=== PATIENT | male | born 1985 | race Two or more races ===

== ENCOUNTER 2017-08-24 14:19 | Inpatient (IN) | payer MEDICAID ==
[~2017-08-24] VITALS: Ht 175.3 cm; Wt 86.2 kg
[2017-08-24 14:56] VITALS: BP 147/101
--- NOTE | 2017-08-24 16:10 | Diagnostic Imaging Report ---
Indication: Pain Knee pain/trauma 3 views of the right knee were obtained. Findings: No acute fracture, malalignment, or joint effusion are identified. Joint space is relatively well-maintained. Impression: Negative for acute findings.
[2017-08-24 17:03] LABS: ALANINE AMINOTRANSFERASE 16 U/L (12-78); ALBUMIN 2.4 G/DL (3.4-5.0); ALBUMIN/GLOBULIN RATIO 0.9 (1.0-2.7); ALKALINE PHOSPHATASE 61 U/L (46-116); ANION GAP 6 mmol/L (5-15); ASPARTATE AMINO TRANSFERASE 13 U/L (15-37); BILIRUBIN,TOTAL 0.2 MG/DL (0.2-1.0); BLOOD UREA NITROGEN 10 mg/dL (7-18); CALCIUM 6.2 MG/DL (8.5-10.1); CARBON DIOXIDE 20 MMOL/L (21-32); CHLORIDE 114 MMOL/L (98-107); CREATININE 0.5 MG/DL (0.55-1.30); SODIUM 141 MMOL/L (136-145)
--- NOTE | 2017-08-24 17:06 | Emergency Room Report ---
History of Present Illness General Chief Complaint: Laceration Source: Patient Present Illness HPI 32-year-old male presents to the emergency department complaining of 10 out of 10 in severity pain to the right knee and right calf with associated swelling. Patient reports that he sustained laceration from coral reef 5 days ago in [place]. Patient states he was treated with antibiotics, had sutures placed and was supposed to follow-up. Patient states that he just returned home and he noticed that he had significant increase in swelling to the affected extremity. He denies new trauma or fall he denies significant increase in temperature palpation. Denies bleeding, discharge or opening of the sutured laceration. Denies numbness tingling or loss of sensation or gross motor movements of the extremity, Denies CP, Palpitations,Shortness of breath or dyspnea. Denies weakness or a sudden severe headache. Allergies: Coded Allergies: No Known Allergies (Unverified , 08/24/17) Patient History Past Medical History: see triage record Past Surgical History: none Pertinent Family History: none Reviewed Nursing Documentation: PMH: Agreed; PSxH: Agreed Nursing Documentation-PMH Past Medical History: No Stated History Review of Systems All Other Systems: negative except mentioned in HPI Physical Exam Vital Signs Date Time Temp Pulse Resp B/P (MAP) Pulse Ox O2 Delivery O2 Flow Rate FiO2 08/24/17 14:23 97.5 82 16 147/101 97 Room Air 97.5 Medical Decision Making PA Attestation Dr Alberts is my supervising Physician whom patient management has been discussed with. Diagnostic Impression: Primary Impression: DVT (deep venous thrombosis) Qualified Codes: I82.441 - Acute embolism and thrombosis of right tibial vein ER Course 32-year-old male presents to the emergency department complaining of 1 out of 10 in severity pain to the right knee and right calf with significant acute increase in swelling x 1 day. Patient reports that he sustained laceration from coral reef 5 days ago in [place]. Patient states he was treated with antibiotics, had sutures placed and was supposed to follow-up. Patient states that he just returned home and he noticed that he had significant increase in swelling to the affected extremity. He denies new trauma or fall he denies significant increase in temperature palpation. Denies bleeding, discharge or opening of the sutured laceration. Denies numbness tingling or loss of sensation or gross motor movements of the extremity, Denies CP, Palpitations, Shortness of breath or dyspnea. Denies weakness or a sudden severe headache. Ddx considered but are not limited to Cellulitis, DVT, varicose vein, PAD, Venous insufficiency, Septic Joint just to name a few. Vital signs: are WNL, pt. is afebrile H&PE are most consistent with ORDERS: CMP, CBC : PT/PTT, D-Dimer, LE duplex U/s to R/O dvt: POSITIVE FOR DVT- Posterior tibialis. ED INTERVENTIONS: None required at this time. DISCHARGE: At this time pt. is stable for d/c to home. Will provide printed patient care instructions, and any necessary prescriptions. Care plan and follow up instructions have been discussed with the patient prior to discharge. DISPOSITION: at this time pt. will be admitted to Dr. Elaine for Acute DVT. Dr. Elaine agreed to admit the pt. and to continue pt. care management. CT/MRI/US Diagnostic Results CT/MRI/US Diagnostic Results : Imaging Test Ordered: Venous Duplex US Right LE Impression Positive for acute DVT in the post. tibial Last Vital Signs Date Time Temp Pulse Resp B/P (MAP) Pulse Ox O2 Delivery O2 Flow Rate FiO2 08/24/17 14:56 97.5 84 16 147/101 97 Room Air 97.5 Disposition: HOME, SELF-CARE Condition: Stable Scripts Apixaban (ELIQUIS) 2.5 Mg Tablet 5 MG ORAL BID for 30 Days, #60 TAB Prov: KAMI ELAINE 08/25/17 Referrals: NON PHYSICIAN (PCP) Diane Horn Aug 24, 2017 17:06
[2017-08-24] MEDS: Enoxaparin 100mg Inj SUBQ SCH (17:07)
[2017-08-24 17:26] VITALS: BP 138/72
[2017-08-24 17:31] LABS: POTASSIUM 2.5 MMOL/L (3.5-5.1)
[2017-08-24 18:45] LABS: EOSINOPHILS % (AUTO) 5.9 % (0.0-3.0); HEMATOCRIT 38.8 % (42.0-52.0); HEMOGLOBIN 13.2 G/DL (14.2-18.0); LYMPHOCYTES % (AUTO) 34.6 % (20.0-45.0); MEAN CORPUSCULAR VOLUME 90 FL (80-99); MONOCYTES % (AUTO) 10.7 % (1.0-10.0); NEUTROPHILS % (AUTO) 46.9 % (45.0-75.0); PLATELET COUNT 269 K/UL (150-450); RED BLOOD COUNT 4.29 M/UL (4.70-6.10); RED CELL DISTRIBUTION WIDTH 11.7 % (11.6-14.8); WHITE BLOOD COUNT 5.6 K/UL (4.8-10.8)
[2017-08-24] MEDS ORDERED: CELEBREX200 MG ORAL (19:15)
[2017-08-24] MEDS ORDERED: AUGMENTIN XR 11 EACH ORAL (19:15)
[2017-08-24 20:11] VITALS: BP 154/101
[2017-08-24] MEDS ORDERED: Milk of Magnesia 30ml Ud ORAL PRN (21:00)
[2017-08-24 22:58] VITALS: BP 146/105
--- NOTE | 2017-08-24 23:30 | History and Physical Report ---
DATE OF ADMISSION: 08/24/2017 CHIEF COMPLAINT AND REASON FOR HOSPITALIZATION: The patient is a 32-year-old man admitted with DVT and laceration right leg. HISTORY OF PRESENT ILLNESS: The patient was recently on a trip in [facility] and cut his right leg around the knee in He was discharged with oral antibiotics and had a long plane ride back to [place]. He came to [place] and found to have diffuse swelling and in the ER DVT. He is generally in excellent health prior to this. CURRENT MEDICATIONS: Include Augmentin, clindamycin, tramadol for the last few days that he received in [facility]. Prior to that, no medications. HABITS: He is a current smoker. Alcohol occasional. Drugs none. 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 SYSTEM REVIEW: Complete system review is negative except for the current problem PHYSICAL EXAMINATION: GENERAL: The patient is well developed, alert, muscular man, in no acute distress. VITAL SIGNS: Temperature 97.5, pulse 88, respirations 18, and blood pressure 138/72, pulse oximetry 99. HEENT: Sclerae are nonicteric. Ocular motions intact in all directions. Oral mucosa moist. NECK: No adenopathy. LUNGS: Clear. HEART: Regular rate and rhythm. No murmur. ABDOMEN: Soft without organomegaly or masses. EXTREMITIES: The right leg is diffusely swollen mostly in the calf and around the knee. There is a clean laceration around the knee. I do not see any cellulitis at this time. There is no obvious joint effusion in the right knee. IMPRESSION: 1. Deep venous thrombosis, right knee. 2. Possible cellulitis. 3. Laceration near the right knee. PLAN: We hope for early discharge. I will start the patient on anticoagulants and continue him on oral antibiotics. We will watch closely in view of his laceration for any infectious cause. The emergency room physician requested Orthopedic consult and we will try to have this arranged. Roberto Guzmán M.D. DR: Christen JOB#: [id number] CC:
[2017-08-25 08:34] VITALS: BP 131/86
[2017-08-25] MEDS: Enoxaparin 100mg Inj SUBQ SCH (08:37)
[2017-08-25] MEDS ORDERED: Eliquis 2.5mg tablet ORAL SCH (09:00)
[2017-08-25 12:00] VITALS: BP 145/92
--- NOTE | 2017-08-25 12:06 | Consultation ---
Consult Note Consult Note 32 yo male with superficial rt knee laceration in [place] last week. Seen in ER there, abx given, sutures applied. admitted last night for Rt LE swelling. noted to have DVT. ortho called for wound eval. Wound closed nicely with nylon sutures. extends laterally over patella. no n/v compromise. no sign of infection. has gotten IV abx since admission. walks without issue although has had occasional popping catching since this happened. Would rec suture removal after full 14 days. possibly may need outpt PT. Possibly an outpt MRI is needed if popping catching continue. anticoagulation per Debbie Romano Aug 25, 2017 12:06
[2017-08-25] MEDS ORDERED: ELIQUIS2.5 MG ORAL (12:18)
--- NOTE | 2017-08-25 13:47 | Diagnostic Imaging Report ---
APPROVED REPORT CPT Code: 20616 Present Symptoms Comments: RIGHT LEG PAIN AND SWELLING. RIGHT LEG: Venous imaging reveals acute thrombus in the calf vein (posterior tibial). Imaging also reveals patency of the common femoral, popliteal and calf veins (anterior tibial and peroneal). The greater saphenous vein is within normal limits.
--- NOTE | 2017-08-26 01:45 | Discharge Summary ---
DATE OF ADMISSION: 08/24/2017 DATE OF DISCHARGE: 08/25/2017 PERTINENT HISTORY: The patient is a 32-year-old man returns from [facility] after having scraped his leg on a coral. He developed diffuse leg swelling and found to have a DVT. PERTINENT PHYSICAL FINDINGS: See the dictated History and Physical. There was diffuse right leg swelling, clean incision and an abrasion. I did not see any cellulitis or any abnormality. COURSE IN THE HOSPITAL: The patient was given Eliquis for DVT. Continued on the same oral antibiotics, he received in [facility]. He remained afebrile and in no distress. He was given instructions. Discharged home in stable condition. FINAL DIAGNOSES: 1. DVT. 2. History of laceration near the right knee. 3. History of possible cellulitis, treated prior to admission. 4. The patient was seen by an Orthopedic Surgeon and cleared for discharge. DISCHARGE DISPOSITION: Home on Eliquis 5 mg b.i.d. Follow up with his PCP in the [place] area. Roberto Guzmán M.D. DR: VICKY JOB#: [id number] CC:
--- NOTE | 2017-08-26 04:00 | Discharge Summary 2 SIG ---
DATE OF ADMISSION: 08/24/2017 DATE OF DISCHARGE: 08/25/2017 ORTHOPEDIC CONSULTATION HISTORY: The patient is a very pleasant 32-year-old gentleman, who was admitted last night with right lower extremity swelling. He was noted in the ER to have a right lower extremity DVT. The patient indicates that he is visiting [facility] and he had a 30-hour flight home. He also indicates while in [facility] on 08[place]18/2017, [place] and sustained a laceration to his right knee. He was seen in the emergency room in [facility] and the incision was washed and closed with superficial nylon sutures. He was given antibiotics, which he finished and has been given intravenous antibiotics since being admitted here. He has had no fever, chills, or signs or symptoms of infection. His laboratory work has been done here not showing any leukocytosis. There is no erythema or signs of infection of the wound. He is being seen by Dr. Guzmán for anticoagulation. PAST MEDICAL HISTORY: None. PAST SURGICAL HISTORY: None. CURRENT MEDICATIONS: Please see chart. ALLERGIES: None. 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 He ambulates independently and is quite active. IMPRESSION: 1. Right knee superficial laceration extending superiorly over the patella and extending laterally without neurovascular compromise or signs of infection. 2. Right lower extremity deep venous thrombosis. 3. Complains of right knee popping and catching, may require an outpatient MRI. DISCUSSION: At this time, I discussed with the patient my findings. With regards to DVT, we will defer that to primary team. However with the knee in regards to laceration, this does not appear to be infected, this does not require surgical washout, and I do believe that after the doses of IV antibiotics that have been ordered for him, he can be without oral antibiotics. He does complain of some occasional popping and catching as he has been walking on it and he may require an outpatient MRI if this continues and he understands that. I would recommend that he see his primary physician or prior orthopedic physician to get this set up for himself. I also recommend that the sutures stay in place for full 14 days and he understands that he will again either see his primary care physician or his prior orthopedic physician to get the sutures out after full 14 days. All the patient's questions were answered. Thank you for allowing me to participate in the care of this patient. If there are any questions or concerns, do not hesitate to contact. Chidi Stanton M.D. I have been assigned to dictate discharge summary on this account and I was not involved in the patient's management. Liu Gardner DR: IONA JOB#: [id number] CC:
--- NOTE | 2017-08-26 04:30 | Consultation ---
DATE OF CONSULTATION: 08/25/2017 ORTHOPEDIC CONSULTATION HISTORY: The patient is a very pleasant 32-year-old gentleman, who was admitted last night with right lower extremity swelling. He was noted in the ER to have a right lower extremity DVT. The patient indicates that he is visiting [facility] and he had a 30-hour flight home. He also indicates while in [facility] on [place]/18/2017, [place] and fell up onto some coral and sustained a laceration to his right knee. He was seen in the emergency room in [facility] and the incision was washed and closed with superficial nylon sutures. He was given antibiotics, which he finished and has been given intravenous antibiotics since being admitted here. He has had no fever, chills, or signs or symptoms of infection. His laboratory work has been done here not showing any leukocytosis. There is no erythema or signs of infection of the wound. He is being seen by Dr. Guzmán for anticoagulation. PAST MEDICAL HISTORY: None. PAST SURGICAL HISTORY: None. CURRENT MEDICATIONS: Please see chart. ALLERGIES: None. 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 He ambulates independently and is quite active. IMPRESSION: 1. Right knee superficial laceration extending superiorly over the patella and extending laterally without neurovascular compromise or signs of infection. 2. Right lower extremity deep venous thrombosis. 3. Complains of right knee popping and catching, may require an outpatient MRI. DISCUSSION: At this time, I discussed with the patient my findings. With regards to DVT, we will defer that to primary team. However with the knee in regards to laceration, this does not appear to be infected, this does not require surgical washout, and I do believe that after the doses of IV antibiotics that have been ordered for him, he can be without oral antibiotics. He does complain of some occasional popping and catching as he has been walking on it and he may require an outpatient MRI if this continues and he understands that. I would recommend that he see his primary physician or prior orthopedic physician to get this set up for himself. I also recommend that the sutures stay in place for full 14 days and he understands that he will again either see his primary care physician or his prior orthopedic physician to get the sutures out after full 14 days. All the patient's questions were answered. Thank you for allowing me to participate in the care of this patient. If there are any questions or concerns, do not hesitate to contact. Chidi Stanton M.D. Liu Gardner DR: IONA JOB#: [id number] CC: DENICE
== END 2017-08-25 13:30 | disposition home or self-care (01) | DRG 197 ==
LOC: EMR 16:34 → 4W 16:40 → EDBEDREQ 16:49
DX: I82.401 Acute embolism and thrombosis of unspecified deep veins of right lower extremity (principal); F17.200 Nicotine dependence, unspecified, uncomplicated; S81.011D Laceration without foreign body, right knee, subsequent encounter; W22.8XXD Striking against or struck by other objects, subsequent encounter; Y92.832 Beach as the place of occurrence of the external cause
CPT/HCPCS: 36415; 80053; 83605; 85025; 85610; 85730; 93971; 99285; J8499; S0077